=== PATIENT | male | born 1980 | race Caucasian/White ===

== ENCOUNTER 2018-09-17 14:40 | Emergency (ER) | payer BC ==
[~2018-09-17] VITALS: Ht 188 cm; Wt 110.7 kg
--- NOTE | 2018-09-17 15:20 | NUR ---
PT ON ALL MONITORS. VSS AT THIS TIME. STATES HIS SYMTPOMS HAVE BEEN GOING ON FOR "YEARS", BUT STATES THE TINGLING TO HIS EXTREMITIES AND HIS HEADACHES HAVE GOTTEN WORSE RECENTLY. UNDERSTANDS POC. AT BS.
[2018-09-17 15:30] VITALS: BP 143/88
[2018-09-17 15:55] LABS: BASOPHILS # (AUTO) 0.02 x10^3/uL (0-0.1); BASOPHILS % (AUTO) 0 % (0-1); EOSINOPHILS # (AUTO) 0.09 x10^3/uL (0-0.4); EOSINOPHILS % (AUTO) 1 % (1-7); LYMPHOCYTES # (AUTO) 1.26 x10^3/uL (1-3.4); LYMPHOCYTES % (AUTO) 20 % (22-44); MD NO; MEAN CORPUSCULAR HEMOGLOBIN 29.6 pg (27.5-34.5); MEAN CORPUSCULAR HGB CONC 33.6 g/dL (33.2-36.2); MEAN PLATELET VOLUME 8.4 fL (7.4-10.4); MONOCYTES # (AUTO) 0.55 x10^3/uL (0.2-0.8); MONOCYTES % (AUTO) 9 % (2-9); NEUTROPHILS # (AUTO) 4.33 x10^3/uL (1.8-6.8); NEUTROPHILS % (AUTO) 69 % (42-75); PLATELET COUNT 219 x10^3/uL (130-400); RED BLOOD COUNT 5.93 x10^6/uL (4.38-5.82); RED CELL DISTRIBUTION WIDTH 12.5 % (9.4-14.8)
[2018-09-17 16:06] LABS: ALBUMIN 3.9 g/dL (3.4-5.0); ANION GAP 6 mmol/L (5-15); CALCIUM 8.6 mg/dL (8.5-10.1); CHLORIDE 111 mmol/L (98-107)
[2018-09-17 16:10] LABS: ALANINE AMINOTRANSFERASE 61 U/L (12-78); ALKALINE PHOSPHATASE 108 U/L (45-117); BILIRUBIN,TOTAL 0.6 mg/dL (0.2-1.0); CREATININE 1.27 mg/dL (0.7-1.3)
--- NOTE | 2018-09-17 17:11 | NUR ---
D/C INSTRUCTIONS PROVIDED TO PT. INSTRUCTED PT TO RETURN TO ED FOR ANY CONCERNING SYMPTOMS. PT STATES HE HAS AN APPT WITH A NEW PCP IN ABOUT 2 MONTHS. PT AMBULATED OUT OF ED WITH FAMILY WITHOUT DIFFICULTY.
== END 2018-09-17 17:14 | disposition home or self-care (01) ==
LOC: EDBD 14:40 → ED 17:03
DX: I10 Essential (primary) hypertension (principal); F17.200 Nicotine dependence, unspecified, uncomplicated
CPT/HCPCS: 36415; 71045; 80053; 85025; 93005; 99284